=== PATIENT | female | born 1945 | race Caucasian/White ===

== ENCOUNTER 2021-01-09 14:05 | Inpatient (IN) | payer MEDICARE, OTHER ==
[2021-01-09 15:12] LABS: #Eosinphils 0.2 10x3/uL (0.0-0.5); #Monocytes 0.7 10x3/uL (0.0-1.1); #Neutrophils 6.4 10x3/uL (1.5-8.4); %Basophils 0.4 % (0.0-2.0); %Eosinophils 1.8 % (0.0-6.0); %Lymphocytes 20.8 % (18.0-47.0); %Monocytes 7.7 % (0.0-10.0); %Neutrophils 67.2 % (40.0-75.0); Hemoglobin 8.9 g/dL (12.0-15.5); Mean Corpuscular HGB CONC 32.1 g/dL (32.0-36.0); Mean Corpuscular Hemoglobin 29.2 pg (27.0-33.0); Mean Corpuscular Volume 90.8 fl (81.6-98.3); Mean Platelet Volume 8.7 fl (7.4-10.4); Platelet Count 268 10x3/uL (150-450); RBC Distribution Width 16.2 % (11.5-14.5); Red Blood Cell (RBC) Count 3.05 10x6/uL (3.90-5.03); White Blood Cell (WBC) Count 9.5 10x3/uL (3.5-10.5)
[2021-01-09 15:27] LABS: ALT (SGPT) 32 U/L (8-55); AST (SGOT) 23 U/L (5-34); Albumin 3.8 g/dL (3.4-4.8); Alkaline Phosphatase 45 U/L (40-110); Anion Gap 14 mmol/L (10-20); BUN (Urea Nitrogen) 23 mg/dL (9.8-20.1); Bilirubin, Total 0.3 mg/dL (0.2-1.2); Calc. Creatinine Clearance 0 mL/min (70-130); Calcium 9.3 mg/dL (7.8-10.44); Carbon Dioxide 30 mmol/L (23-31); Chloride 99 mmol/L (98-107); Globulin 2.1 g/dL (2.4-3.5); Glucose 152 mg/dL (83-110); Potassium 3.7 mmol/L (3.5-5.1); Protein, Total 5.9 g/dL (5.8-8.1); Sodium 139 mmol/L (136-145)
[2021-01-09 15:35] LABS: PTT 21.7 sec (22.0-33.0); Prothrombin Time 10.9 sec (9.5-12.1)
[2021-01-09] MEDS ORDERED: Pantoprazole 80 MG, Admixture Fee 1 EACH in Sodium Chloride 0.9% 100 ML IVPB SCH (16:00)
[2021-01-09 17:44] VITALS: BMI 39.8
[2021-01-09] MEDS ORDERED: Ondansetron PF 4 MG/2 ML Vial IVP PRN (18:07)
[2021-01-09] MEDS ORDERED: Acetaminophen 325 MG TAB PO PRN (18:07)
[2021-01-09 19:28] LABS: Troponin I Less than 0.010 ng/mL (< 0.028)
[2021-01-09 22:04] LABS: Troponin I 0.013 ng/mL (< 0.028)
[2021-01-09] MEDS: clonazePAM 0.5 MG TAB PO PRN (23:44)
[2021-01-09] MEDS: Acetaminophen/Codeine 30-300mg Tablet PO PRN (23:53)
[2021-01-10 05:04] LABS: #Eosinphils 0.2 10x3/uL (0.0-0.5); #Monocytes 0.7 10x3/uL (0.0-1.1); #Neutrophils 4.5 10x3/uL (1.5-8.4); %Basophils 0.3 % (0.0-2.0); %Eosinophils 2.3 % (0.0-6.0); %Lymphocytes 26.5 % (18.0-47.0); %Monocytes 8.8 % (0.0-10.0); %Neutrophils 60.3 % (40.0-75.0); Hemoglobin 7.9 g/dL (12.0-15.5); Mean Corpuscular HGB CONC 32.6 g/dL (32.0-36.0); Mean Platelet Volume 8.9 fl (7.4-10.4); Platelet Count 232 10x3/uL (150-450); RBC Distribution Width 16.8 % (11.5-14.5); Red Blood Cell (RBC) Count 2.63 10x6/uL (3.90-5.03); White Blood Cell (WBC) Count 7.4 10x3/uL (3.5-10.5)
[2021-01-10 05:12] LABS: Anion Gap 12 mmol/L (10-20); BUN (Urea Nitrogen) 19 mg/dL (9.8-20.1); Calc. Creatinine Clearance 110 mL/min (70-130); Calcium 8.6 mg/dL (7.8-10.44); Carbon Dioxide 30 mmol/L (23-31); Chloride 101 mmol/L (98-107); Glucose 139 mg/dL (83-110); Potassium 3.6 mmol/L (3.5-5.1); Sodium 139 mmol/L (136-145)
[2021-01-10] MEDS ORDERED: Escitalopram Oxalate 10 mg Tablet PO SCH (10:30)
[2021-01-10 12:03] LABS: SARS-CoV-2 PCR by NAA Not Detected (NotDetected)
[2021-01-10] MEDS: Acetaminophen/Codeine 30-300mg Tablet PO PRN (12:13)
[2021-01-10] MEDS: clonazePAM 0.5 MG TAB PO PRN ×2 (12:15→20:35)
[2021-01-10] MEDS: Pantoprazole 40 MG VIAL IVP SCH (20:35)
[2021-01-11 04:36] LABS: Hemoglobin 8.1 g/dL (12.0-15.5)
[2021-01-11] MEDS: Amlodipine 5 MG TAB PO SCH (08:53)
[2021-01-11] MEDS: Levothyroxine Sodium 88 MCG TAB PO SCH (08:54)
[2021-01-11] MEDS: Pantoprazole 40 MG VIAL IVP SCH ×2 (08:54→20:35)
[2021-01-11] MEDS: Escitalopram Oxalate 10 mg Tablet PO SCH (10:42)
[2021-01-11] MEDS ORDERED: Promethazine HCl 25 MG/ML VIAL SLOW IVP PRN (12:56)
[2021-01-11] MEDS ORDERED: Ondansetron HCl/PF 4 MG/2 ML Vial IVP PRN (12:56)
[2021-01-11] MEDS ORDERED: Promethazine HCl 25 MG/ML VIAL IM PRN (12:56)
[2021-01-11] MEDS ORDERED: Lidocaine 1% PF 5 ML VIAL ONE (13:03)
[2021-01-11] MEDS ORDERED: PROPOFOL 20 ML ONE (13:03)
[2021-01-11] MEDS ORDERED: GoLYTELY 4,000 ml Bottle PO SCH (13:30)
[2021-01-11] MEDS: clonazePAM 0.5 MG TAB PO PRN (20:35)
[2021-01-12] MEDS: Acetaminophen/Codeine 30-300mg Tablet PO PRN ×2 (02:24→20:52)
[2021-01-12 05:27] LABS: #Eosinphils 0.1 10x3/uL (0.0-0.5); #Monocytes 0.5 10x3/uL (0.0-1.1); #Neutrophils 3.6 10x3/uL (1.5-8.4); %Basophils 0.4 % (0.0-2.0); %Eosinophils 2.1 % (0.0-6.0); %Lymphocytes 19.3 % (18.0-47.0); %Neutrophils 67.4 % (40.0-75.0); Mean Corpuscular HGB CONC 32.1 g/dL (32.0-36.0); Mean Corpuscular Hemoglobin 29.3 pg (27.0-33.0); Mean Corpuscular Volume 91.2 fl (81.6-98.3); Platelet Count 244 10x3/uL (150-450); Red Blood Cell (RBC) Count 2.73 10x6/uL (3.90-5.03); White Blood Cell (WBC) Count 5.3 10x3/uL (3.5-10.5)
[2021-01-12] MEDS: Escitalopram Oxalate 10 mg Tablet PO SCH (09:33)
[2021-01-12] MEDS: Levothyroxine Sodium 88 MCG TAB PO SCH (09:33)
[2021-01-12] MEDS: Pantoprazole 40 MG VIAL IVP SCH ×2 (09:34→20:12)
[2021-01-12] MEDS: Amlodipine 5 MG TAB PO SCH (09:34)
[2021-01-12] MEDS ORDERED: Lidocaine 2% MPF 10 ML AMP (For Epidural Use) ONE (14:03)
[2021-01-12] MEDS ORDERED: PROPOFOL 20 ML ONE ×3 (14:03→15:09)
[2021-01-12] MEDS ORDERED: Glycopyrrolate 0.2 MG/ML 5 ML SYRINGE ONE (15:07)
[2021-01-12] MEDS ORDERED: ePHEDrine 50 MG/ML VIAL ONE (15:08)
[2021-01-12] MEDS: clonazePAM 0.5 MG TAB PO PRN (20:53)
[2021-01-13 05:40] LABS: #Eosinphils 0.2 10x3/uL (0.0-0.5); #Monocytes 0.5 10x3/uL (0.0-1.1); #Neutrophils 3.3 10x3/uL (1.5-8.4); %Basophils 0.2 % (0.0-2.0); %Eosinophils 3.4 % (0.0-6.0); %Lymphocytes 22.9 % (18.0-47.0); %Monocytes 9.8 % (0.0-10.0); %Neutrophils 63.1 % (40.0-75.0); Mean Corpuscular HGB CONC 31.7 g/dL (32.0-36.0); Mean Corpuscular Hemoglobin 28.9 pg (27.0-33.0); Mean Platelet Volume 8.8 fl (7.4-10.4); Platelet Count 257 10x3/uL (150-450); Red Blood Cell (RBC) Count 2.77 10x6/uL (3.90-5.03); White Blood Cell (WBC) Count 5.3 10x3/uL (3.5-10.5)
[2021-01-13 05:51] LABS: ALT (SGPT) 40 U/L (8-55); AST (SGOT) 32 U/L (5-34); Albumin 3.5 g/dL (3.4-4.8); Alkaline Phosphatase 47 U/L (40-110); Anion Gap 13 mmol/L (10-20); BUN (Urea Nitrogen) 7 mg/dL (9.8-20.1); Bilirubin, Total 0.5 mg/dL (0.2-1.2); Calc. Creatinine Clearance 108 mL/min (70-130); Calcium 8.2 mg/dL (7.8-10.44); Carbon Dioxide 26 mmol/L (23-31); Chloride 104 mmol/L (98-107); Globulin 2.1 g/dL (2.4-3.5); Glucose 129 mg/dL (83-110); Protein, Total 5.6 g/dL (5.8-8.1); Sodium 140 mmol/L (136-145)
[2021-01-13 05:57] LABS: Potassium 2.9 mmol/L (3.5-5.1)
[2021-01-13] MEDS ORDERED: Potassium Chloride 20 MEQ TAB PO SCH (07:30)
[2021-01-13] MEDS: Amlodipine 5 MG TAB PO SCH (08:44)
[2021-01-13] MEDS: Levothyroxine Sodium 88 MCG TAB PO SCH (08:45)
[2021-01-13] MEDS: Escitalopram Oxalate 10 mg Tablet PO SCH (08:46)
[2021-01-13] MEDS: Pantoprazole 40 MG VIAL IVP SCH (08:46)
[2021-01-13] MEDS ORDERED: Morphine 2 MG/ML VIAL ONE (10:26)
[2021-01-13 19:55] VITALS: BP 125/70; TEMP 98.6
== END 2021-01-13 17:21 | disposition home or self-care (01) | DRG 378 ==
LOC: CSHERS 14:05 → CSHTELE 16:16
PROVIDERS: ADMIT Hospitalist; ATTEND Hospitalist
PROC: 0DJ08ZZ Inspection of Upper Intestinal Tract, Via Natural or Artificial Opening Endoscopic (ICD-10-PCS; principal; 2021-01-11)
PROC: 0DBH8ZZ Excision of Cecum, Via Natural or Artificial Opening Endoscopic (ICD-10-PCS; 2021-01-12)
DX: K92.1 Melena (principal); Z68.41 Body mass index [BMI] 40.0-44.9, adult; D62 Acute posthemorrhagic anemia; T39.395A Adverse effect of other nonsteroidal anti-inflammatory drugs [NSAID], initial encounter; Z20.822 Contact with and (suspected) exposure to COVID-19; E66.01 Morbid (severe) obesity due to excess calories; M19.90 Unspecified osteoarthritis, unspecified site; K57.90 Diverticulosis of intestine, part unspecified, without perforation or abscess without bleeding; K64.8 Other hemorrhoids; E03.9 Hypothyroidism, unspecified; I10 Essential (primary) hypertension; G47.33 Obstructive sleep apnea (adult) (pediatric); E11.9 Type 2 diabetes mellitus without complications; Z86.010 Personal history of colon polyps; Z79.84 Long term (current) use of oral hypoglycemic drugs; Z79.890 Hormone replacement therapy; Z79.899 Other long term (current) drug therapy; Z79.1 Long term (current) use of non-steroidal anti-inflammatories (NSAID); I25.10 Atherosclerotic heart disease of native coronary artery without angina pectoris; Z96.653 Presence of artificial knee joint, bilateral; Z90.49 Acquired absence of other specified parts of digestive tract; K63.5 Polyp of colon
CPT/HCPCS: 36415; 36416; 71045; 74177; 78226; 80048; 80053; 82274; 83605; 84484; 85014; 85018; 85025; 85610; 85730; 86850; 86900; 86901; 87635; 88305; 93005; A9537; C9113; J2001; J2270; J2704; J3490; U0003; U0005

== ENCOUNTER 2022-06-30 10:12 | Outpatient (CLI) | payer MEDICARE, OTHER | END 2022-06-30 10:13 | disposition home or self-care (01) | LOC: CSHMAMMO 10:12 | PROVIDERS: ATTEND Family Medicine Sports Medicine | DX: Z12.31 Encounter for screening mammogram for malignant neoplasm of breast (principal); Z13.820 Encounter for screening for osteoporosis; Z78.0 Asymptomatic menopausal state | CPT/HCPCS: 77063; 77067; 77080 ==

== ENCOUNTER 2024-08-29 14:23 | Outpatient (CLI) | payer MEDICARE, OTHER | END 2024-08-29 14:24 | disposition home or self-care (01) | LOC: CSHMAMMO 14:23 | PROVIDERS: ATTEND Family Medicine Sports Medicine | DX: Z12.31 Encounter for screening mammogram for malignant neoplasm of breast (principal); N63.11 Unspecified lump in the right breast, upper outer quadrant | CPT/HCPCS: 77063; 77067 ==

== ENCOUNTER 2024-09-11 13:42 | Outpatient (CLI) | payer MEDICARE, OTHER | END 2024-09-11 13:43 | disposition home or self-care (01) | LOC: CSHMAMMO 13:42 | PROVIDERS: ATTEND Family Medicine Sports Medicine | DX: N63.11 Unspecified lump in the right breast, upper outer quadrant (principal) | CPT/HCPCS: 76642; 77065; G0279 ==

== ENCOUNTER → 2024-09-18 | Day surgery (SDC) | payer MEDICARE, OTHER | LOC: CSHULT 12:27 | PROVIDERS: ATTEND Family Medicine Sports Medicine | PROC: 0HBT3ZX Excision of Right Breast, Percutaneous Approach, Diagnostic (ICD-10-PCS; principal; 2024-09-18) | DX: C50.411 Malignant neoplasm of upper-outer quadrant of right female breast (principal) | CPT/HCPCS: 19083; 19084; 88305; 88361 ==